=== PATIENT | female | born 1935 | race Hispanic/Latino ===

== ENCOUNTER 2019-05-05 10:37 | Outpatient (CLI) | payer MEDICARE ==
[2019-05-05 11:15] LABS: Bilirubin,Urine NEG (Negative); Blood,Urine SM (Negative); Color,Urine Yellow (Yellow); Mucus,Urine FEW /HPF; Protein,Urine <15 mg/dL mg/dL (Negative); Urobilinogen,Urine < 2.0 mg/dL (<2.0)
== END 2019-05-05 10:38 | disposition home or self-care (01) ==
LOC: LAB 10:37
PROVIDERS: ATTEND Internal Medicine
DX: N39.0 Urinary tract infection, site not specified (principal); K21.9 Gastro-esophageal reflux disease without esophagitis
CPT/HCPCS: 81001; 87086

== ENCOUNTER 2019-08-14 08:49 | Outpatient (CLI) | payer MEDICARE ==
[2019-08-14 09:57] LABS: Basophils % (Auto) 0.4 % (0.0-1.8); Eosinophils # (Auto) 0.2 K/mm3 (0.0-0.4); Hematocrit 38.5 % (30.3-42.9); Hemoglobin 12.9 gm/dl (10.1-14.3); Lymphocytes # (Auto) 1.4 K/mm3 (1.2-5.4); Lymphocytes % (Auto) 23.9 % (13.4-35.0); Mean Corpuscular HGB Conc 34 % (30-34); Mean Corpuscular Volume 92 fl (79-97); Monocytes # (Auto) 0.5 K/mm3 (0.0-0.8); Monocytes % (Auto) 8.1 % (0.0-7.3); Platelet Count 259 K/mm3 (140-440); Red Blood Count 4.17 M/mm3 (3.65-5.03); Red Cell Distribution Width 14.6 % (13.2-15.2)
[2019-08-14 10:04] LABS: Alanine Aminotransferase 9 units/L (7-56); Albumin 4.3 g/dL (3.9-5); BUN/Creatinine Ratio 24; Blood Urea Nitrogen 12 mg/dL (7-17); Calcium 9.4 mg/dL (8.4-10.2); Chol/HDL Ratio 4.01 %; HDL Cholesterol 59 mg/dL (40-59); Hemolysis Index 0; LDL Cholesterol,Direct 170 mg/dL (50-130)
[2019-08-17 11:51] LABS: Vitamin D, 25-OH, D2 <4 ng/mL
== END 2019-08-14 08:50 | disposition home or self-care (01) ==
LOC: LAB 08:49
PROVIDERS: ATTEND Internal Medicine
DX: Z13.21 Encounter for screening for nutritional disorder (principal); Z13.29 Encounter for screening for other suspected endocrine disorder; E78.2 Mixed hyperlipidemia; R73.03 Prediabetes
CPT/HCPCS: 36415; 80053; 80061; 82306; 82607; 83036; 84443; 85025